=== PATIENT | male | born 1970 | race Caucasian/White ===

== ENCOUNTER 2017-04-21 11:48 | Emergency (ER) | payer BC ==
[~2017-04-21] VITALS: Ht 167.6 cm; Wt 87.5 kg
[2017-04-21 11:54] VITALS: BP 140/85
== END 2017-04-21 13:12 | disposition home or self-care (01) ==
LOC: ED 11:48
DX: H16.8 Other keratitis (principal); E11.9 Type 2 diabetes mellitus without complications; E78.00 Pure hypercholesterolemia, unspecified